=== PATIENT | male | born 1945 | race Caucasian/White ===

== ENCOUNTER 2018-02-20 07:07 | Day surgery (SDC) | payer OTHER, SELFPAY ==
[~2018-02-20] VITALS: Ht 177.8 cm; Wt 94.8 kg
[~2018-02-20 07:07] MED LIST: ASPI81CH PO; GABA300 PO; Omeprazole20 M1 PO; Ropinirole HCl0.5 MG PO
== END 2018-02-20 10:12 | disposition home or self-care (01) ==
LOC: ORSCMMR 07:07 → ORD 09:00 → ORSCMMR 10:12
PROVIDERS: Surgery
PROC: 0DBN8ZX Excision of Sigmoid Colon, Via Natural or Artificial Opening Endoscopic, Diagnostic (ICD-10-PCS; principal; 2018-02-20 09:00)
DX: K64.2 Third degree hemorrhoids (principal); D12.5 Benign neoplasm of sigmoid colon; E78.5 Hyperlipidemia, unspecified; K57.30 Diverticulosis of large intestine without perforation or abscess without bleeding; K27.9 Peptic ulcer, site unspecified, unspecified as acute or chronic, without hemorrhage or perforation; K64.8 Other hemorrhoids; Z87.891 Personal history of nicotine dependence; K21.9 Gastro-esophageal reflux disease without esophagitis; E66.9 Obesity, unspecified; Z68.30 Body mass index [BMI] 30.0-30.9, adult; Z79.82 Long term (current) use of aspirin; Z79.899 Other long term (current) drug therapy
CPT/HCPCS: 88305; J3010; J7120